=== PATIENT | male | born 1975 | race Caucasian/White ===

== ENCOUNTER 2022-05-25 01:04 | Emergency (ER) | payer OTHER ==
[~2022-05-25] VITALS: Ht 177.8 cm; Wt 77.3 kg
[2022-05-25 01:55] VITALS: BP 149/101
[2022-05-25] MEDS ORDERED: CLOT15CR29 TP (03:37)
[2022-05-25] MEDS ORDERED: KETOROLAC TROMETHAMINE 30 MG/ML VIAL IM ONE (03:45)
== END 2022-05-25 04:16 | disposition home or self-care (01) ==
LOC: EMS 01:08
DX: S63.601A Unspecified sprain of right thumb, initial encounter (principal); B35.4 Tinea corporis; J45.909 Unspecified asthma, uncomplicated; F19.10 Other psychoactive substance abuse, uncomplicated; F15.90 Other stimulant use, unspecified, uncomplicated; Z87.09 Personal history of other diseases of the respiratory system; W26.8XXA Contact with other sharp object(s), not elsewhere classified, initial encounter; Y93.89 Activity, other specified; Y92.89 Other specified places as the place of occurrence of the external cause; Y99.8 Other external cause status
CPT/HCPCS: 99284; 73110; 73130; 96372; J1885